=== PATIENT | male | born 1955 | race Caucasian/White ===

== ENCOUNTER 2020-07-07 17:11 | Emergency (ER) | payer MEDICARE ==
[~2020-07-07 17:11] MED LIST: NEURONTIN300 MG PO; ROBAXIN500 MG PO; SYMBICORT 80-46.9 GM INH; TRIPLE FLEX CA1 EACH PO; TYLENOL ARTHRI650 MG PO; VENTOLIN HFA IN18 GM INH; ZANTAC150 MG PO; ZOCOR20 MG PO; ZYRTEC10 MG PO
== END 2020-07-07 18:50 | disposition home or self-care (01) ==
LOC: FER 17:11
DX: S39.011A Strain of muscle, fascia and tendon of abdomen, initial encounter (principal); J44.9 Chronic obstructive pulmonary disease, unspecified; E78.5 Hyperlipidemia, unspecified; F17.210 Nicotine dependence, cigarettes, uncomplicated; Z88.6 Allergy status to analgesic agent; Z79.899 Other long term (current) drug therapy; Z87.19 Personal history of other diseases of the digestive system; X58.XXXA Exposure to other specified factors, initial encounter
CPT/HCPCS: 96372; 99283; J1100; J1885